=== PATIENT | female | born 1960 | race Caucasian/White ===

== ENCOUNTER 2020-10-22 06:25 | Day surgery (SDC) | payer OTHER ==
[2020-10-22] MEDS ORDERED: ROCURONIUM 50 MG/5 ML VIAL IV ONE (06:57)
[2020-10-22] MEDS ORDERED: FENTANYL CITR 100 MCG/2 ML ONE (06:57)
[2020-10-22] MEDS ORDERED: LIDOCAINE 2% MPF 5 ML VIAL ONE (06:57)
[2020-10-22] MEDS ORDERED: propofoL 200 MG/20 ML VIAL IV ONE (06:57)
[2020-10-22] MEDS ORDERED: MIDAZOLAM HCL 2 MG/2 ML INJ ONE (06:57)
[2020-10-22] MEDS ORDERED: dexAMETHasone 10 MG/ML VIAL ONE (06:57)
[2020-10-22] MEDS ORDERED: ONDANSETRON 4 MG/2 ML VIAL ONE (06:58)
[2020-10-22] MEDS ORDERED: Ringers Lactate 1,000 ML IV ONE (07:06)
[2020-10-22] MEDS ORDERED: CEFOXITIN/SWI 1gm 1 GM/10 ML SYR ONE (07:17)
--- NOTE | 2020-10-22 07:25 | P.HP ---
Date of Service: 10/22/20 PC: This 59-year-old female presents for a laparoscopic cholecystectomy with cholangiogram. HPC: Patient has been experiencing right upper quadrant abdominal pain, radiating into her back. A workup was found to have cholelithiasis PMH: NAD PSHx: Negative SOC: Denies any allergies SYS REVIEW: No cough, wheeze, shortness of breath. No chest pain or palpitations. Denies any urinary complaints O/E awake alert vital signs are stable HEENT: Nonicteric Chest: Chest movement equal bilaterally ABD: Soft nontender LOCO: Intact DATA: Has documented gallstones IMPRESSION: Cholecystitis with cholelithiasis PLAN: I will to the operating room for laparoscopic possible open cholecystectomy. The risks of this procedure have been discussed. The possibility of bleeding, infection, injury to bile ducts blood vessels intestines has been described. The possible need for an open and/or further surgeries and procedures was discussed. She understands and wants to proceed.
[2020-10-22] MEDS ORDERED: GLYCOPYRROLATE 0.2 MG/ML SYR ONE ×2 (08:00→08:55)
[2020-10-22] MEDS ORDERED: KETOROLAC 30 MG/ML INJ ONE (08:55)
[2020-10-22] MEDS ORDERED: NEOSTIGMINE 1 MG/ML -5 ML ONE (08:55)
[2020-10-22] MEDS ORDERED: HYDROCODONE/APAP 10/325 TAB PO ONE (09:38)
[2020-10-22] MEDS ORDERED: HYDROCODONE/APAP 10/325 TAB ONE (10:18)
[2020-10-22 11:43] VITALS: BP 141/68; TEMP 96.9; O2SAT 100
--- NOTE | 2020-10-22 15:36 | RAD REPORT ---
EXAM DESCRIPTION: RADCholangiogram Oper-Xray Or10/22/2020 3:28 pm CLINICAL HISTORY: Abdominal pain FINDINGS: The examination was performed by Dr. Fisher. The cystic duct was cannulated and contrast administered. Contrast flowed into the duodenum. The biliary tree is normal caliber. Fluoroscopy time 0.5 minutes. Ten fluoroscopic spot images obtained
== END 2020-10-22 11:12 | disposition home or self-care (01) ==
LOC: OR 06:25
PROVIDERS: ATTEND Surgery
PROC: BF03YZZ Plain Radiography of Gallbladder and Bile Ducts using Other Contrast (ICD-10-PCS; 2020-10-22)
PROC: 0FT44ZZ Resection of Gallbladder, Percutaneous Endoscopic Approach (ICD-10-PCS; principal; 2020-10-22 07:30)
DX: K81.0 Acute cholecystitis (principal); Z20.822 Contact with and (suspected) exposure to COVID-19
CPT/HCPCS: 88304; 74300; 47563; U0003; J2704; J2250; J3010; J1100; J2710; J7120; J2405